=== PATIENT | male | born 1930 | race Caucasian/White ===

== ENCOUNTER 2017-04-26 13:30 | Emergency (ER) | payer OTHER ==
[~2017-04-26] VITALS: Ht 175.3 cm; Wt 112.0 kg
[~2017-04-26 13:30] MED LIST: ASPIR 8181 MG PO; CARDURA4 MG PO; CENTRUM SILVER1 EAC2 PO; FOSAMAX 10 MG10 M1; NORCO 5-325 TA1 EACH PO; VITAMINC500 PO
[2017-04-26] MEDS ORDERED: HYDROCODONE-AP1 EAC6 PO (15:07)
[2017-04-26 15:09] VITALS: BP 125/70
== END 2017-04-26 15:29 | disposition home or self-care (01) ==
LOC: ER 13:30
DX: S92.354A Nondisplaced fracture of fifth metatarsal bone, right foot, initial encounter for closed fracture (principal); M25.511 Pain in right shoulder; W01.0XXA Fall on same level from slipping, tripping and stumbling without subsequent striking against object, initial encounter; Y93.89 Activity, other specified; Y92.89 Other specified places as the place of occurrence of the external cause; Y99.8 Other external cause status

== ENCOUNTER 2018-05-05 17:40 | Inpatient (IN) | payer OTHER ==
[~2018-05-05] VITALS: Ht 175.3 cm; Wt 107.7 kg
--- NOTE | ~2018-05-05 | EKG ---
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
[~2018-05-05 17:40] MED LIST changes: +HYDROCODONE-AP1 EAC6 PO
[2018-05-05 18:46] VITALS: BP 124/64
[2018-05-05 19:18] LABS: ABSOLUTE NEUTROPHILS 13.2 thou/uL (1.4-8.2); BASOPHILS 0.7 % (0.0-2.0); EOSINOPHILS 0.2 % (0.0-3.0); HEMOGLOBIN 12.5 gm/dL (14.0-18.0); LYMPHOCYTES 7.9 % (24.0-44.0); MCH 28.5 pg (26.0-34.0); MCHC 33.7 g/dL (28.0-37.0); MCV 84.4 fL (80.0-100.0); MONOCYTES 8.6 % (1.0-8.0); PLATELET COUNT 220 thou/uL (150-400); POLYS 82.6 % (36.0-66.0); RBC 4.39 mil/uL (4.50-6.00); RDW 14.1 % (10.5-14.5)
[2018-05-05 19:27] LABS: ANION GAP 8 mmol/L (7-16); BUN 20 mg/dL (7-18); CALCIUM 9.5 mg/dL (8.5-10.1); CHLORIDE 102 mmol/L (98-107); CO2 26 mmol/L (21-32); CREATININE 1.4 mg/dL (0.7-1.3); GLUCOSE 121 mg/dL (74-106); POTASSIUM 4.1 mmol/L (3.5-5.1); SODIUM 136 mmol/L (136-145)
[2018-05-05 19:36] LABS: MAGNESIUM 1.9 mg/dL (1.8-2.4); TROPONIN-I <0.06 ng/mL (<0.06)
[2018-05-05 19:58] LABS: URINE BILIRUBIN 1+ (Negative); URINE BLOOD NEGATIVE (Negative); URINE CLARITY CLEAR; URINE GLUCOSE-RANDOM* NEGATIVE (Negative); URINE KETONES NEGATIVE (Negative); URINE LEUKOCYTES-REFLEX NEGATIVE (Negative); URINE NITRITE-REFLEX NEGATIVE (Negative); URINE PROTEIN (DIPSTICK) TRACE (Negative); URINE SPECIFIC GRAVITY 1.025 (1.005-1.035)
[2018-05-05 19:59] LABS: URINE COLOR AMBER
[2018-05-05 20:10] LABS: ICTOTEST (BILI CONFIRMATORY) Positive (Negative)
[2018-05-05 20:10] LABS: ALBUMIN 3.1 g/dL (3.4-5.0); DIRECT BILIRUBIN 1.8 mg/dL (<0.1-0.3); TOTAL BILIRUBIN 3.2 mg/dL (<0.1-1.0); TOTAL PROTEIN 6.8 g/dL (6.4-8.2)
[2018-05-05 23:14] VITALS: BP 127/54
[2018-05-05 23:21] VITALS: BP 127/54
[2018-05-05 23:58] VITALS: BP 126/64
[2018-05-06 04:30] VITALS: BP 103/52
[2018-05-06 06:25] LABS: HEMATOCRIT 34.8 % (42.0-52.0); HEMOGLOBIN 11.4 gm/dL (14.0-18.0); MCH 27.9 pg (26.0-34.0); MCHC 32.8 g/dL (28.0-37.0); MCV 85.2 fL (80.0-100.0); RBC 4.09 mil/uL (4.50-6.00); RDW 14.3 % (10.5-14.5); WBC 15.8 thou/uL (4.0-11.0)
[2018-05-06 06:42] LABS: ALBUMIN 2.7 g/dL (3.4-5.0); CREATININE 1.4 mg/dL (0.7-1.3); TOTAL BILIRUBIN 2.9 mg/dL (<0.1-1.0); TOTAL PROTEIN 6.9 g/dL (6.4-8.2)
[2018-05-06 07:22] VITALS: BP 113/61
[2018-05-06 13:00] VITALS: BP 112/77
[2018-05-06 21:45] VITALS: BP 124/63
[2018-05-07 07:26] LABS: HEMATOCRIT 33.1 % (42.0-52.0); HEMOGLOBIN 10.9 gm/dL (14.0-18.0); MCH 28.4 pg (26.0-34.0); MCV 86.2 fL (80.0-100.0); RBC 3.83 mil/uL (4.50-6.00); WBC 9.7 thou/uL (4.0-11.0)
[2018-05-07 07:38] VITALS: BP 112/63
[2018-05-07 07:41] LABS: ALBUMIN 2.4 g/dL (3.4-5.0); CALCIUM 8.8 mg/dL (8.5-10.1); CREATININE 1.3 mg/dL (0.7-1.3); PHOSPHORUS 3.1 mg/dL (2.5-4.9); POTASSIUM 4.1 mmol/L (3.5-5.1); TOTAL BILIRUBIN 1.8 mg/dL (<0.1-1.0); TOTAL PROTEIN 6.3 g/dL (6.4-8.2)
[2018-05-07 19:45] VITALS: BP 108/56
[2018-05-08 07:32] VITALS: BP 120/61
[2018-05-08 07:44] LABS: ALBUMIN 2.5 g/dL (3.4-5.0); CALCIUM 8.9 mg/dL (8.5-10.1); CREATININE 1.3 mg/dL (0.7-1.3); PHOSPHORUS 3.1 mg/dL (2.5-4.9); POTASSIUM 4.4 mmol/L (3.5-5.1)
[2018-05-08] MEDS ORDERED: AUGMENTIN 875-1 EACH PO (08:22)
[2018-05-08] MEDS ORDERED: COLACE100 MG PO (08:23)
[2018-05-08 08:36] LABS: FOLIC ACID 36.9 ng/mL (8.6-58.9)
[2018-05-08] MEDS ORDERED: ASPERCREME 1141.7 GM TOP (09:12)
[2018-05-08 11:58] VITALS: BP 120/61
== END 2018-05-08 13:30 | disposition home or self-care (01) | DRG 871 ==
LOC: ER 17:40 → EROBS 22:36 → SICU 22:36 → 4E 23:22 → SICU 05-06 11:51 → ENTRNSPT 05-08 12:56 → EDTRNSPTSTS 05-08 13:15 → SICU 05-08 13:30
PROVIDERS: Emergency Medicine; Hospitalist; Nurse Practitioner Acute Care; Nurse Practitioner Family; Surgery
DX: A41.9 Sepsis, unspecified organism (principal); E43 Unspecified severe protein-calorie malnutrition; N17.9 Acute kidney failure, unspecified; K56.7 Ileus, unspecified; K57.32 Diverticulitis of large intestine without perforation or abscess without bleeding; K80.00 Calculus of gallbladder with acute cholecystitis without obstruction; R16.0 Hepatomegaly, not elsewhere classified; E80.6 Other disorders of bilirubin metabolism; K21.9 Gastro-esophageal reflux disease without esophagitis; N18.3 Chronic kidney disease, stage 3 (moderate); N40.0 Benign prostatic hyperplasia without lower urinary tract symptoms; Z68.35 Body mass index [BMI] 35.0-35.9, adult; Z87.891 Personal history of nicotine dependence; Z79.82 Long term (current) use of aspirin; Z79.899 Other long term (current) drug therapy
CPT/HCPCS: 10084; 15002

== ENCOUNTER → 2021-06-01 | Emergency (ER) | payer OTHER ==
[~2021-06-01] VITALS: Ht 175.3 cm; Wt 108.9 kg
[~2021-06-01] MED LIST changes: +ASPERCREME 1141.7 GM TOP; +AUGMENTIN 875-1 EACH PO; +COLACE100 MG PO
[2021-06-01 17:00] VITALS: BP 129/60
== END ==
LOC: ER 16:35
DX: Z53.21 Procedure and treatment not carried out due to patient leaving prior to being seen by health care provider (principal)

== ENCOUNTER → 2021-06-30 | Outpatient (CLI) | payer OTHER | LOC: SJCVC 10:10 | PROVIDERS: ATTEND Internal Medicine | DX: R94.31 Abnormal electrocardiogram [ECG] [EKG] (principal); R06.02 Shortness of breath; Z13.220 Encounter for screening for lipoid disorders; Z87.891 Personal history of nicotine dependence; Z79.82 Long term (current) use of aspirin; Z79.899 Other long term (current) drug therapy ==

== ENCOUNTER → 2021-07-06 | Outpatient (CLI) | payer OTHER | LOC: SJCVCIMAG 07:18 | PROVIDERS: ATTEND Internal Medicine | DX: I49.3 Ventricular premature depolarization (principal); R00.0 Tachycardia, unspecified; I10 Essential (primary) hypertension; R06.00 Dyspnea, unspecified; Z87.891 Personal history of nicotine dependence; Z79.82 Long term (current) use of aspirin; Z79.899 Other long term (current) drug therapy ==

== ENCOUNTER → 2021-08-02 | Outpatient (CLI) | payer OTHER | LOC: SJCVC 10:29 | PROVIDERS: ATTEND Internal Medicine | DX: I11.9 Hypertensive heart disease without heart failure (principal); I34.0 Nonrheumatic mitral (valve) insufficiency; R06.00 Dyspnea, unspecified; Z79.899 Other long term (current) drug therapy; Z87.891 Personal history of nicotine dependence; Z79.82 Long term (current) use of aspirin ==